=== PATIENT | female | born 1960 | race Caucasian/White ===

== ENCOUNTER 2024-03-03 13:38 | Outpatient (AMB) | payer OTHER, SELFPAY ==
--- NOTE | 2024-03-03 13:48 | MHC.PC.OV ---
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 Intake Note: patient here for new patient visit Diplomatic Courier Required: No Is last menstrual period known: No Post menopausal: No Patient : No Allergies No Known Allergies Allergy (Verified 03/03/24 13:51) Tobacco use date assessed: 03/03/24 Dental Screening Dental Screen Date: 03/03/24 Did you have a dental visit in the last 12 months?: Yes Did you have a dental problem in the last 6 months where you did not have access to dental care?: No Was dental information given to patient?: Patient has dentist HPI HPI Comments History of Present Illness Details This is a female with a past medical history of asthma, anxiety, diastolic dysfunction, abnormal Pap, HPV, hypertension, rosacea and basal cell carcinoma presenting to [facility] care. She transferred from my panel at [facility]. She requests a physical exam. She has a history of postnasal drip and environmental allergies. She was recently seen at urgent care for congestion and asthma exacerbation. She was advised to use Nasacort nasal spray. The condition caused irritation to her airways, increasing the use of her inhaler for asthma. The patient reports improved symptoms with the regular use of Nasacort. She takes Singulair. She would like a referral [facility]. Regarding breast health, she has dense breast tissue which has required follow-up imaging due to inconclusive right mammogram result this past summer at [facility] on [address] She did not have additional imaging done. I reviewed the 74 pages of records from [facility], and the last mammogram is not in the record. We will request the records from [facility] to clarify what further orders and follow up needed. She has a history of osteopenia and takes magnesium supplements, noting a significant improvement in mobility and muscle comfort. The patient also discusses a need for vitamin D supplementation due to osteopenia. She does not know if she is due for a bone density exam. The record of her lows bone density exam is requested from [facility]. She recalls previous HPV detection in a Pap test leading to the recommendation of LEEP, which she considers a painful procedure. Patient said she is going to call her wrecker driver, Dr. Morgan, today to schedule a follow up and further discussion about the procedure. In terms of lifestyle, she experiences considerable stress related to family dynamics and caregiving responsibilities, affecting her daily life. Furthermore, she has skin tags that she plans to have removed but is delayed due to work-related constraints. She is followed at [facility] for annual skin exams. No recurrence of basal cell carcinoma to date. Patient was informed and verbally consented to the use of an ambient scribe for clinic note documentation during this visit. She has a history of anxiety and PTSD-her father murdered her mother when she was younger, and she had to testify at trial. When she tried to do jury duty as an adult she was barely able to speak to the grain wafer machine operator. Her therapist wrote a letter for her to be excused from jury duty, and I agreed to continue to provide these letters when needed for the patient. She declines colonoscopy. Cologuard ordered. She declines all recommended vaccinations. She is up-to-date with eye and dental exams. ROS: Constitutional: No unexplained weight loss, fever, chills, fatigue or night sweats. Eyes: No vision changes, blurry vision, double vision, eye pain, eye redness, eye discharge. ENT: See HPI Respiratory: No shortness of breath, cough or sputum production. Cardiovascular: No chest pain, chest pressure or chest discomfort. No palpitations or pedal edema. Gastrointestinal: No anorexia, nausea, vomiting or diarrhea. No abdominal pain or blood in stool. Genitourinary: No dysuria, hematuria, urinary frequency. Neurologic: No headache, dizziness, syncope, unilateral weakness, ataxia, numbness or tingling in the extremities. Musculoskeletal: No muscle pain, back pain, joint pain or swelling. Hematologic/Lymphatics: No bleeding or bruising. No painful lymph nodes. Skin: No rash or itching. Endocrine: No cold or heat intolerance. No polyuria or polydipsia. Psychiatric: No depression or anxiety. No SI/HI. Physical exam: Constitutional: Alert, in no distress. Head: Normocephalic. Eyes: Pupils are equal, round and reactive to light. Extraocular muscles intact. Ear, Nose and Throat: Canals clear. TMs normal. Normal nasal mucosa. No nasal discharge. No oral lesions. Neck: Supple, Full range of motion. No lymphadenopathy. No palpable thyroid masses. Respiratory: Clear to auscultation. Cardiovascular: S1 S2 regular. No murmurs. No carotid bruits. Gastrointestinal: Abdomen soft, non-tender, non-distended. Normal bowel sounds. No palpable masses. Neurologic: No focal neurological deficits. Symmetric patellar reflexes. Moves all extremities spontaneously. Sensation intact bilaterally. Skin: Rosacea Musculoskeletal: No gross deformities. Normal range of motion. Extremities: Warm and well perfused. No clubbing, cyanosis or edema. Psychiatric: Normal mood and affect [facility] Medical History (Updated 03/03/24 @ 17:03 by ROLANDA Dickinson) Abnormal mammogram Routine physical examination HPV (human papilloma virus) infection History of hypertension Osteopenia Chronic rhinitis Imbalance Sinusitis Asthma Surgical History (Updated 03/03/24 @ 14:05 by Pat Smith) History of hernia repair Family History (Updated 03/03/24 @ 14:00 by Pat Smith) Father Alcohol abuse Daughter Substance abuse Mother FH: mental illness Social History Housing: House Patient Tobacco Use Status: Never used Tobacco e-Cigarette/Vaping Use: Never Used Second Hand Smoke Exposure: Yes service: No Current occupational status: employed Current occupation: global account manager Current occupational exposures/hazards: No Cognitive needs: No Hearing needs: No Vision needs: Yes Questionnaire PHQ-9 Over the last 2 weeks, how often have you been bothered by any of the following problems? 1. Little interest or pleasure in doing things: not at all 2. Feeling down, depressed, or hopeless: not at all 3. Trouble falling or staying asleep, or sleeping too much: not at all 4. Feeling tired or having little energy: not at all 5. Poor appetite or overeating: not at all 6. Feeling bad about yourself - or that you are a failure or have let yourself or your family down: not at all 7. Trouble concentrating on things, such as reading the newspaper or watching television: not at all 8. Moving or speaking so slowly that other people could have noticed. Or the opposite - being so fidgety or restless that you have been moving around a lot more than usual: not at all 9. Thoughts that you would be better off or of hurting yourself in some way: not at all Total score: 0 Depression Screening Interpretation: Negative Depression Screening Done: Yes 72709 - PHQ-9 Billing: Yes Source: Developed by Drs. Andre Hodge, Miranda Khan, Jono Montero and colleagues, with an educational delores from [employer] Thrive Questionnaire Date Thrive assessed: 03/03/24 I am a: Patient What is your living situation today?: I have a steady place to live Within the past 12 months, did the food you bought not last and you didn't have the money to get more?: Never true Within the past 12 months, did you worry whether your food would run out before you got money to buy more?: Never true Do you have trouble paying for medicines?: No Do you have trouble getting transportation to medical appointments?: No Do you have trouble paying your heating and electricity bill?: No Do you have trouble taking care of your child, family member or friend?: No Do you have trouble with day-to-day activities such as bathing, preparing meals, shopping, managing finances, etc.?: No Are you currently unemployed and looking for a job?: No Are you interested in more education?: No Please select the resources that you would like help with: None Currently or been in a relationship where the following occur: No concerns reported THRIVE Score: 0 AUDIT C Alcohol Use Questionnaire (AUDIT-C) 1. How often do you have a drink containing alcohol?: 2-3 times a week 2. How many drinks containing alcohol do you have on a typical day when you are drinking?: 1 or 2 3. How often do you have six or more drinks on one occasion?: Never Total Score: 3 TUCKER-7 AMB Questionnaire TUCKER-7 Date TUCKER - 7 assessed: 03/03/24 Feeling nervous, anxious, or on edge: 1 = Several days Not being able to stop or control worryin = Several days Worrying too much about different things: 1 = Several days Trouble relaxin = Several days Being so restless that it is hard to sit still: 0 = Not at all Becoming easily annoyed or irritable: 1 = Several days Feeling afraid as if something awful might happen: 0 = Not at all Total TUCKER-7 score (0-4 normal; 5-9 mild; 10-14 moderate; 15-21 severe): 5 Source: Developed by Drs. Andre Hodge, Miranda Khan, Jono Montero and colleagues, with an educational delores from [employer] TUCKER-7 Assessment Billing TUCKER-7 Assessment Tool: TUCKER-7 Assessment 64217 ACT Questionnaire In the past 4 weeks, how much of the time did your asthma keep you from getting as much done at work, school or at home?: Some of the time During the past 4 weeks, how often have you had shortness of breath?: More than once a day During the past 4 weeks, how often did your asthma symptoms wake you up at night or earlier than usual in the morning?: 2-3 nights a week During the past 4 weeks, how often have you had to use your rescue inhaler or nebulizer medication?: More than 3 times per day How would you rate your asthma control during the past 4 weeks?: Somewhat controlled Score: 10 Physical exam (Primary Care) Vital Signs: Last Vital Signs Temp 97.8 F 03/03/24 13:56 Pulse 97 03/03/24 13:56 Resp 16 03/03/24 13:56 BP 117/65 03/03/24 13:56 Pulse Ox 96 03/03/24 13:56 Oxygen Delivery Method Room Air 03/03/24 13:56 BMI result Body Mass Index 32.6 Tobacco/Smoking Status: Tobacco use Status Tobacco use date assessed 03/03/24 03/03/24 14:00 Patient Tobacco Use Status Never used Tobacco 03/03/24 14:00 e-Cigarette/Vaping Use Never Used 03/03/24 14:00 PHQ-9: PHQ-9 Score PHQ-9: Total score 0 03/03/24 16:26 Depression Screening Interpretation: Negative Thrive Assessment: Date of Thrive Assessment Date Thrive assessed 03/03/24 03/03/24 13:50 Currently or been in a relationship where the following occur: No concerns reported Coding Level of Care Code Est Pt Prev Care 40-64y(99672) Diagnoses Routine physical examination Z00.00 Chronic rhinitis J31.0 Osteopenia M85.80 HPV (human papilloma virus) infection B97.7 Abnormal mammogram R92.8 Additional Codes TUCKER-7 Assessment Billing - TUCKER-7 Assessment Tool: TUCKER-7 Assessment 42717 ([id number]) PHQ-9 - 34001 - PHQ-9 Billing: Yes ([id number]) Assessment & Plan Assessment & Plan (1) Routine physical examination: Code(s): Z00.00 - Encounter for general adult medical examination without abnormal findings Category: Medical Plan: Patient is seen today for a routine physical. As part of this visit we reviewed the following issues, which are considered and essential part of preventative health in this age group: - Breast Cancer screening - Annual Systems Development Consultant exam - Screening for colon cancer - Blood pressure screening - Cholesterol screening - Osteoporosis prevention including calcium/vitamin D intake, weight bearing exercise & smoking cessation - Nutritional and exercise counseling - Counseling of injury prevention including fire prevention, smoke alarms and seat belt usage - Screening for depression - Prevention of and/or testing for infectious diseases - Education about skin cancer - Recommendations about immunizations - Recommendation of an eye exam - Screening for substance abuse (2) Chronic rhinitis: Code(s): J31.0 - Chronic rhinitis Category: Medical Plan: Continue Nasacort and Singulair. [facility]. (3) Osteopenia: Code(s): M85.80 - Other specified disorders of bone density and structure, unspecified site Category: Medical Plan: Request last bone density exam from [facility]. (4) HPV (human papilloma virus) infection: Code(s): B97.7 - Papillomavirus as the cause of diseases classified elsewhere Category: Medical Plan: Patient will call Gynecology for follow up. (5) Abnormal mammogram: Code(s): R92.8 - Other abnormal and inconclusive findings on diagnostic imaging of breast Category: Medical Plan: We will request the records from [facility] to clarify what further follow up and imaging is needed. I set a patient reminder about this as well. Plan Follow up in 1 month via telehealth for lab results and to make sure we have received records from bone density and mammogram. Orders: Orders Magnesium Today R53.83 - Other fatigue, Z00.00 - Encounter for general adult medical examination without abnormal findings, Z13.6 - Encounter for screening for cardiovascular disorders Vitamin D 1,25 dihydroxy Today R53.83 - Other fatigue, Z00.00 - Encounter for general adult medical examination without abnormal findings, Z13.6 - Encounter for screening for cardiovascular disorders Lipid Panel Today R53.83 - Other fatigue, Z00.00 - Encounter for general adult medical examination without abnormal findings, Z13.6 - Encounter for screening for cardiovascular disorders TSH reflex Free T4 Today R53.83 - Other fatigue, Z00.00 - Encounter for general adult medical examination without abnormal findings, Z13.6 - Encounter for screening for cardiovascular disorders Complete Blood Count no Diff Today R53.83 - Other fatigue, Z00.00 - Encounter for general adult medical examination without abnormal findings, Z13.6 - Encounter for screening for cardiovascular disorders Comprehensive Met. Panel Today R53.83 - Other fatigue, Z00.00 - Encounter for general adult medical examination without abnormal findings, Z13.6 - Encounter for screening for cardiovascular disorders Referrals Cologuard Test Z12.11 - Encounter for screening for malignant neoplasm of colon, Z12.12 - Encounter for screening for malignant neoplasm of rectum Ear/Nose/Throat Referral J31.0 - Chronic rhinitis
[2024-03-03 13:56] VITALS: BP 117/65; PULSE 97; RESP 16; TEMP 36.6; O2SAT 96; BMI 32.6
== END 2024-03-03 14:46 | disposition home or self-care (01) ==
PROVIDERS: Visit Provider Physician Assistant Medical
DX: Z00.00 Encounter for general adult medical examination without abnormal findings (principal); J31.0 Chronic rhinitis; M85.80 Other specified disorders of bone density and structure, unspecified site; B97.7 Papillomavirus as the cause of diseases classified elsewhere; R92.8 Other abnormal and inconclusive findings on diagnostic imaging of breast

== ENCOUNTER → 2024-03-03 13:38 | Outpatient (BNVA) | payer OTHER, SELFPAY | PROVIDERS: Visit Provider Physician Assistant Medical | DX: Z00.00 Encounter for general adult medical examination without abnormal findings (principal); J31.0 Chronic rhinitis; M85.80 Other specified disorders of bone density and structure, unspecified site; B97.7 Papillomavirus as the cause of diseases classified elsewhere; R92.8 Other abnormal and inconclusive findings on diagnostic imaging of breast | CPT/HCPCS: 96127; 96160 ==

== ENCOUNTER 2024-04-04 16:06 | Outpatient (AMB) | payer OTHER, SELFPAY ==
--- NOTE | 2024-04-04 16:06 | MHC.PC.OV ---
Intake Visit Reasons: review/lab and breast imaging Allergies No Known Allergies Allergy (Verified 04/04/24 16:06) Tobacco use date assessed: 04/04/24 Dental Screening Dental Screen Date: 04/04/24 Did you have a dental visit in the last 12 months?: Yes Did you have a dental problem in the last 6 months where you did not have access to dental care?: No Was dental information given to patient?: Patient has dentist HPI HPI Comments History of Present Illness Details This is a female with a past medical history of asthma, anxiety, diastolic dysfunction, abnormal Pap, HPV, hypertension, rosacea and basal cell carcinoma presenting to review records from [facility]. When I saw her recently she reported that she has dispense tissue which has required follow up imaging due to including occlusive right mammogram results in summer 2023 at [facility]. Patient says she did not get the additional imaging done that was recommended. This office requested the record from [facility], and there is a mammogram dated 12/01/2023. It reads that the patient was called back for diagnostic imaging on prior screening mammogram dated 11/04/2022 however patient did not return for additional imaging. Further interval increase in group microcalcifications in the slightly upper outer posterior right breast 9 cm from the nipple. Spot magnification views in the CC and true lateral projections recommended. Redemonstrated is a 5 mm oval mass in the lower inner posterior right breast, 9 cm from the nipple with associated calcifications. Further evaluation with spot CC and spot MLO tomographic compression views and targeted ultrasound recommended. She denies breast pain, palpable masses, nipple discharge, rashes. Denies fatigue, night sweats, unexplained weight loss. She has a history of osteopenia, she usually takes vitamin-D, but she has to reorder it. She gets it from a particular place that has a high quality vitamin. She works out regularly, and she make sure she is getting good sources of calcium in her diet. We did obtain the bone density exam dated 02/03/2023 from [facility]. This showed osteopenia. [facility] [place] but we did not receive those results yet. Sent message to request them. She reported postnasal drip and environmental allergies. She was advised to use Nasacort nasal spray after an urgent care visit. The patient reports improved symptoms with the regular use of Nasacort. She takes Singulair. She [facility] which has been processed. And she received the letter to call and make an appointment. ROS: as noted in hpi [facility] Medical History (Updated 04/04/24 @ 17:19 by ROLANDA Dickinson) Breast mass, right Abnormal mammogram Routine physical examination HPV (human papilloma virus) infection History of hypertension Osteopenia Chronic rhinitis Imbalance Sinusitis Asthma Surgical History (Updated 03/03/24 @ 14:05 by Pat Smith) History of hernia repair Family History (Updated 03/03/24 @ 14:00 by Pat Smith) Father Alcohol abuse Daughter Substance abuse Mother FH: mental illness Social History Housing: House Patient Tobacco Use Status: Never used Tobacco e-Cigarette/Vaping Use: Never Used Second Hand Smoke Exposure: Yes service: No Current occupational status: employed Current occupation: digital account coordinator Current occupational exposures/hazards: No Cognitive needs: No Hearing needs: No Vision needs: Yes Questionnaire Thrive Questionnaire Date Thrive assessed: 03/01/24 I am a: Patient What is your living situation today?: I have a steady place to live Within the past 12 months, did the food you bought not last and you didn't have the money to get more?: Never true Within the past 12 months, did you worry whether your food would run out before you got money to buy more?: Never true Do you have trouble paying for medicines?: No Do you have trouble getting transportation to medical appointments?: No Do you have trouble paying your heating and electricity bill?: No Do you have trouble taking care of your child, family member or friend?: No Do you have trouble with day-to-day activities such as bathing, preparing meals, shopping, managing finances, etc.?: No Are you currently unemployed and looking for a job?: No Are you interested in more education?: No Please select the resources that you would like help with: None Currently or been in a relationship where the following occur: No concerns reported THRIVE Score: 0 TUCKER-7 AMB Questionnaire TUCKER-7 Date TUCKER - 7 assessed: 03/03/24 Source: Developed by Drs. Andre Hodge, Miranda Khan, Jono Montero and colleagues, with an educational delores from [employer]. Physical exam (Primary Care) Tobacco/Smoking Status: Tobacco use Status Tobacco use date assessed 04/04/24 04/04/24 16:09 Patient Tobacco Use Status Never used Tobacco 04/04/24 16:09 e-Cigarette/Vaping Use Never Used 04/04/24 16:09 Thrive Assessment: Date of Thrive Assessment Date Thrive assessed 03/01/24 04/04/24 16:09 Currently or been in a relationship where the following occur: No concerns reported Telehealth Telehealth Telehealth Platform: Telephone Location of provider rendering services: practice address Location of patient: address on file Patient Identification confirmed using: Name, : Yes Telehealth method: voice only Patient verbally consented to treatment: Yes Patient verbally consented to billing insurance company: Yes Patient informed of any privacy concerns related to visit: Yes Minutes spent on Phone/Video with Pt.: 15 Coding Level of Care Code Tele Est Pt Level 4 (55009) Complex EM visit Add On G2211 Diagnoses Abnormal mammogram R92.8 Breast mass, right N63.10 Osteopenia M85.80 Chronic rhinitis J31.0 Assessment & Plan Assessment & Plan (1) Abnormal mammogram: Code(s): R92.8 - Other abnormal and inconclusive findings on diagnostic imaging of breast Category: Medical (2) Breast mass, right: Code(s): N63.10 - Unspecified lump in the right breast, unspecified quadrant Category: Medical (3) Osteopenia: Code(s): M85.80 - Other specified disorders of bone density and structure, unspecified site Category: Medical (4) Chronic rhinitis: Code(s): J31.0 - Chronic rhinitis Category: Medical Plan Patient was advised that mammogram findings are abnormal and concerning for possible breast cancer. She is strongly advised to have additional imaging done. She agreed to do this. I will fax stat orders to [facility] Center on [address] so they can contact the patient to schedule this. We reviewed current recommendation for osteopenia is to get a total of 1200mg of calcium daily from dietary sources and supplements. Women should also ingest a total of 800 to 1000 international units of vitamin D daily. Avoid tobacco use and excessive alcohol use. Weightbearing exercise as tolerated is encouraged. She continues to exercise regularly. Bone density exam should be repeated in 02/11/2025. She will contact ENT to schedule an appointment and continue her current regimen for rhinitis. Follow up in 1 month. Orders: Orders MM diagnostic mammo unilat RT Today N63.10 - Unspecified lump in the right breast, unspecified quadrant US breast LT limited Today N63.10 - Unspecified lump in the right breast, unspecified quadrant
--- OUTSIDE RECORDS SUMMARY | 2024-04-04 16:36 | XMS_ITS | Patient Health Record ---
Author Organization [facility] Address [address] [place] [address] Care Team Providers Care Measurement Supervisor Name Role Phone Caryn Carson Primary Care Provider Unavailabl e Allergies Allergen (clinical drug ingredient) Drug/Non Drug Allergy documented on EMR Reaction Allergy Type Onset Date Status Qvar cough Drug Allergy Active Reason For Referral No Information Medications Medication SIG (Take, Route, Frequency, Duration) Notes Start Date End Date Status Ascorbic Acid 500 MG 1 tablet Orally Onc e a day Active amLODIPine Besylate 2.5 MG 1 tablet Oral ly Once a day Active Albuterol Sulfate 108 (90 Base) MCG/ACT 2 puffs Inhalation twice a day as needed Active Meloxicam 7.5 MG 1 tablet with food O rally Once a day for 30 day(s) 10/02/2020 Active Meloxicam 7.5 MG 1 tablet with food O rally Once a day for 30 day(s) 08/24/2020 Active Montelukast Sodium 10 MG 1 tablet Orally Once a day Active Problems Problem Type SNOMED Code ICD Code Onset Dates Problem Status W/U Status Risk Notes Problem [id number] Equinus deformity of left foot (M21.6X2) Active confirmed Plan Of Treatment No Information Insurance Providers Payer Name Payer Address Payer Phone Subscriber Number Group Number Insured Name Patient Relationship to Insured Coverage Start Date Coverage End Date [place] [address] [place] [phone] [id number] Tanya Molina Self - patient is the insured Medical (General) History Medical History History ICD Code Anxiety Asthma Cough Diastolic dysfunction Diverticulosis of sigmoid colon Electrocardiogram abnormal H/O abnormal cervical papanicolaou smear H/O vitamin D deficiency History of Basal Cell Carcinoma (BCC) Hypertensive disorder Menopausal flushing Obesity Rosacea , spontaneous complete Allergic contact dermatitis due to plant Influenza A Plantar Fasciitis Right inguinal hernia Surgical History Surgery Date(Month/Year) Repair right inguinal hernia with mesh ( David technique) 01/04/16 History of Inguinal Hernia Repair
== END 2024-04-04 17:01 | disposition home or self-care (01) ==
LOC: HO.HMCFM 16:06
PROVIDERS: PCP Physician Assistant Medical; Visit Provider Physician Assistant Medical
DX: N63.14 Unspecified lump in the right breast, lower inner quadrant (principal); M85.80 Other specified disorders of bone density and structure, unspecified site; J31.0 Chronic rhinitis; R92.8 Other abnormal and inconclusive findings on diagnostic imaging of breast

== ENCOUNTER → 2024-04-04 16:06 | Outpatient (BNVA) | payer OTHER, SELFPAY | PROVIDERS: PCP Physician Assistant Medical; Visit Provider Physician Assistant Medical ==

== ENCOUNTER 2024-04-26 11:17 | Outpatient (REF) | payer OTHER, SELFPAY ==
--- OUTSIDE RECORDS SUMMARY | 2024-04-26 14:13 | XMS_ITS | Patient Health Record ---
Author Organization [facility] Address [address] [place] [address] Care Team Providers Care English Division Chair Name Role Phone Caryn Carson Primary Care [...] Problem Status W/U Status Risk Notes Problem [id number] Equinus deformity of left foot (M21.6X2) Active confirmed Plan Of Treatment No Information Insurance Providers Payer Name Payer Address Payer Phone Subscriber Number Group Number Insured Name Patient Relationship to Insured Coverage Start Date Coverage End Date [place] [address] [place] [phone] [id number] Tanya Molina Self - patient is the [...]
== END 2024-04-26 11:18 | disposition home or self-care (01) ==
LOC: CF 11:17
DX: Z13.89 Encounter for screening for other disorder (principal)